=== PATIENT | female | born 1970 | race Caucasian/White ===

== ENCOUNTER 2019-06-22 14:32 | Emergency (ER) | payer MEDICARE ==
--- NOTE | 2019-06-22 14:49 | ER Document Report ---
ED Medical Screen (RME) - General Chief Complaint: Psych Problem Stated Complaint: PSYCH Time Seen by Provider: 06/22/19 14:44 Mode of Arrival: Ambulatory Information source: Patient Notes: Patient is a 49-year-old female presents the emergency department chief complaint of suicidal ideations. Patient reports history of bipolar and schizophrenia, states she is not taking any medications. Patient has a flight of ideas. She has pleasant and cooperative and answering all questions however she easily gets off track. She reports that she plans to inject herself so that she can . 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 I have greeted and performed a rapid initial assessment of this patient. A comprehensive ED assessment and evaluation of the patient, analysis of test results and completion of the medical decision making process will be conducted by additional ED providers. I have specifically instructed the patient or family members with the patient to immediately return to any nursing staff should anything change in the patient's condition or with their chief complaint. This medical record was dictated with voice recognizing software. There may be grammatical, syntax errors that are unintended. TRAVEL OUTSIDE OF THE [place] IN LAST 30 DAYS: No - Related Data Allergies/Adverse Reactions: promethazine [From Phenergan] Allergy (Verified 06/22/19 14:37) Past Medical History Renal/ Medical History: Denies: Hx Peritoneal Dialysis Physical Exam - Vital signs Vitals: Temp Pulse Resp BP Pulse Ox 98.7 F 103 H 16 129/80 H 98 06/22/19 14:37 06/22/19 14:37 06/22/19 14:37 06/22/19 14:37 06/22/19 14:37 Course - Vital Signs Vital signs: Temp Pulse Resp BP Pulse Ox 98.7 F 103 H 16 129/80 H 98 06/22/19 14:37 06/22/19 14:37 06/22/19 14:37 06/22/19 14:37 06/22/19 14:37
[2019-06-22 15:33] LABS: ABSOLUTE BASOPHILS # (AUTO) 0.1 10^3/uL (0.0-0.2); ABSOLUTE EOSINOPHILS # (AUTO) 0.1 10^3/uL (0.0-0.6); ABSOLUTE LYMPHOCYTES (AUTO) 1.5 10^3/uL (0.5-4.7); ABSOLUTE MONOCYTES (AUTO) 0.4 10^3/uL (0.1-1.4); BASOPHILS % (AUTO) 0.7 % (0-2); EOSINOPHILS % (AUTO) 0.8 % (0-6); HEMATOCRIT 41.3 % (36.0-47.0); LYMPHOCYTES % (AUTO) 18.4 % (13-45); MEAN CORPUSCULAR HEMOGLOBIN 30.4 pg (27.0-33.4); MEAN CORPUSCULAR HGB CONC 33.9 g/dL (32.0-36.0); MEAN CORPUSCULAR VOLUME 90 fl (80-97); MONOCYTES % (AUTO) 4.6 % (3-13); PLATELET COUNT 277 10^3/uL (150-450); RED BLOOD COUNT 4.61 10^6/uL (3.72-5.28); RED CELL DISTRIBUTION WIDTH 12.9 % (11.5-14.0); SEGMENTED NEUTROPHILS % (AUTO) 75.5 % (42-78); TOTAL CELLS COUNTED % (AUTO) 100 %; WHITE BLOOD COUNT 7.9 10^3/uL (4.0-10.5)
[2019-06-22 15:47] LABS: ACETAMINOPHEN < 10 ug/mL (10-30); ALBUMIN 4.7 g/dL (3.5-5.0); ALCOHOL < 10 mg/dL (NONE DETECTED); ALKALINE PHOSPHATASE 61 U/L (38-126); ANION GAP 9 (5-19); APPEARANCE,URINE CLEAR; ASPARTATE AMINO TRANSFERASE 27 U/L (14-36); BILIRUBIN,DIRECT 0.1 mg/dL (0.0-0.4); BILIRUBIN,TOTAL 0.8 mg/dL (0.2-1.3); BILIRUBIN,URINE NEGATIVE (NEGATIVE); BLOOD UREA NITROGEN 17 mg/dL (7-20); CALCIUM 10.1 mg/dL (8.4-10.2); CARBON DIOXIDE 29 mmol/L (22-30); CHLORIDE 104 mmol/L (98-107); COLOR,URINE YELLOW; GLUCOSE 104 mg/dL (75-110); GLUCOSE, URINE NEGATIVE (NEGATIVE); KETONES,URINE TRACE mg/dL (NEGATIVE); LEUKOCYTE ESTERASE,URINE NEGATIVE (NEGATIVE); NITRITE,URINE NEGATIVE (NEGATIVE); POTASSIUM 3.8 mmol/L (3.6-5.0); PROTEIN,URINE NEGATIVE (NEGATIVE); SALICYLATE < 1.0 mg/dL (2.0-20.0); URINE SPECIFIC GRAVITY 1.026; UROBILINOGEN,URINE NEGATIVE mg/dL (<2.0)
--- NOTE | 2019-06-22 15:52 | ER Document Report ---
ED Psych Disorder / Suicide - General Chief Complaint: Psych Problem Stated Complaint: PSYCH Time Seen by Provider: 06/22/19 14:44 Mode of Arrival: Ambulatory Information source: Patient Notes: 49 year old female presents with 2 months of increasing depression and wants to hurt herself. She presents here after relocating from [facility]. Sits in her room and smokes all day is what she tells me. She has h/o suicide attempt in the past and Mental Health is involved here with her and she has been placed on IVC papers already. TRAVEL OUTSIDE OF THE [place] IN LAST 30 DAYS: No - HPI Onset was: Gradual Severity: Moderate - Related Data Allergies/Adverse Reactions: promethazine [From Phenergan] Allergy (Verified 06/22/19 14:37) Past Medical History - General Information source: Patient - Social History Smoking Status: Current Every Day Smoker Frequency of alcohol use: None Drug Abuse: Methamphetamine Family History: Reviewed & Not Pertinent Patient has suicidal ideation: Yes Patient has homicidal ideation: No Renal/ Medical History: Denies: Hx Peritoneal Dialysis Psychiatric Medical History: Reports: Hx Bipolar Disorder Review of Systems - Review of Systems Constitutional: No symptoms reported EENT: No symptoms reported Cardiovascular: No symptoms reported Respiratory: No symptoms reported Gastrointestinal: No symptoms reported Genitourinary: No symptoms reported Female Genitourinary: No symptoms reported Musculoskeletal: No symptoms reported Skin: No symptoms reported Hematologic/Lymphatic: No symptoms reported Neurological/Psychological: See HPI, Depression Physical Exam - Vital signs Vitals: Temp Pulse Resp BP Pulse Ox 98.7 F 103 H 16 129/80 H 98 06/22/19 14:37 06/22/19 14:37 06/22/19 14:37 06/22/19 14:37 06/22/19 14:37 Interpretation: Normal - General General appearance: Appears well, Alert - HEENT Head: Normocephalic, Atraumatic Eyes: Normal Pupils: PERRL - Respiratory Respiratory status: No respiratory distress Chest status: Nontender Breath sounds: Normal Chest palpation: Normal - Cardiovascular Rhythm: Regular Heart sounds: Normal auscultation Murmur: No - Abdominal Inspection: Normal Distension: No distension Bowel sounds: Normal Tenderness: Nontender Organomegaly: No organomegaly - Back Back: Normal, Nontender - Extremities General upper extremity: Normal inspection, Nontender, Normal color, Normal ROM, Normal temperature General lower extremity: Normal inspection, Nontender, Normal color, Normal ROM, Normal temperature, Normal weight bearing. No: Jm's sign - Neurological Neuro grossly intact: Yes Cognition: Normal Orientation: AAOx4 Stella Coma Scale Eye Opening: Spontaneous Davin Coma Scale Verbal: Oriented Stella Coma Scale Motor: Obeys Commands Stella Coma Scale Total: 15 Speech: Normal Motor strength normal: LUE, RUE, LLE, RLE Sensory: Normal - Psychological Associated symptoms: Normal affect, Normal mood - Skin Skin Temperature: Warm Skin Moisture: Dry Skin Color: Normal Course - Re-evaluation Re-evalutation: 06/22/19 15:52 MDM 49 year old with h/o depression is here with depressive symptoms for several weeks. No great social support. 06/22/19 16:52 MDM Pt has been seen and evaluated by Psych. Feel zyprexa may help with her manic symptoms. She has been placed on IVC papers. Reevaluate tomorrow for mood affect. - Vital Signs Vital signs: Temp Pulse Resp BP Pulse Ox 98.7 F 103 H 16 129/80 H 98 06/22/19 14:37 06/22/19 14:37 06/22/19 14:37 06/22/19 14:37 06/22/19 14:37 - Laboratory Result Diagrams: 06/22/19 15:00 06/22/19 15:00 Laboratory results interpreted by me: 06/22/19 06/22/19 15:00 15:00 Urine Ketones TRACE H Salicylates < 1.0 L Acetaminophen < 10 L Discharge - Discharge Clinical Impression: Bipolar 1 disorder Depressed Qualifiers: Depression Type: unspecified Qualified Code(s): F32.9 - Major depressive disorder, single episode, unspecified Condition: Good Disposition: HOME, SELF-CARE Instructions: Depression (OM) Additional Instructions: See your doctor in follow up. Rest, please return here for any problems or concerns.
[2019-06-22 16:04] LABS: URINE AMPHETAMINES SCREEN NEGATIVE; URINE BARBITURATES SCREEN NEGATIVE; URINE BENZODIAZEPINES SCREEN NEGATIVE; URINE COCAINE SCREEN NEGATIVE; URINE MARIJUANA (THC) SCREEN NEGATIVE; URINE METHADONE SCREEN NEGATIVE; URINE PHENCYCLIDINE SCREEN NEGATIVE
--- NOTE | 2019-06-22 16:41 | PSYCHOLOGICAL NOTE ---
Psych Note - Psych Note Date seen by psych provider: 06/22/19 Time seen by psych provider: 15:20 Psych Note: Reason for Consult: Manic, Suicidal ideation Consent permissions: Friend and roommate Chi [phone] Patient is a 49-year-old female presents the emergency department chief complaint of suicidal ideations. Patient reports history of bipolar and schizophrenia, states she is not taking any medications. Patient reports that she has been off medications for significant time and has a history of methamphetamine abuse. She denies current use stating that she has been clean and living with a friend. Patient disclosed that she used to be on medication for bipolar and that abilify and zyprexa has worked in the patient. She states Depakote was bad, and did not work for her. Patient's friend, Chi, reports that today they told the patient that she had to come in because she has been having increased difficulties over the last 2 months. He reports that while she has been clean from methamphetamine, she has increased her drinking and smoking of marijuana. He reports that she is unable to handle her alcohol becomes very belligerent and aggressive. He discloses that they have taken her off the street and helped her get clean however told her today that if she did not get help she would have to move out and go back on the street. Bipolar disorder per history Substance Abuse; alcohol and Cannabis (Current) and methamphetamine (states clean now) per history provided by patient Medication recommendations per [facility]'s contracted psychiatrist Dr. Gilbert NASH are as follows Zyprexa 2.5mg twice daily Impression/Plan: Patient is recommended for [facility] petition for overnight mental health observation. Patient is presenting with incongruent affect to topics. She reports she has been having difficulty controlling suicidal ideation for the last 2 months however is smiling and laughing while she discusses this.
[2019-06-22] MEDS ORDERED: OLANZAPINE 2.5 MG TABLET PO ONE (16:51)
[2019-06-22] MEDS: OLANZAPINE 2.5 MG TABLET PO SCH (17:13)
--- NOTE | 2019-06-22 20:56 | EKG REPORT ---
SEVERITY:- NORMAL ECG - SINUS RHYTHM : Confirmed by: Geraldine Groves MD 22-Jun-2019 20:55:07
[2019-06-23 08:39] VITALS: BP 113/61
[2019-06-23] MEDS: OLANZAPINE 2.5 MG TABLET PO SCH (10:04)
--- NOTE | 2019-06-23 10:56 | ER Document Report ---
Doctor's Note Notes: 06/23/19 10:55 Rounds: Chart reviewed and patient interviewed. Patient with a history of bipolar disorder and also mention of schizophrenia. She says she is having suicidal thoughts. Not currently on any medications, ran out of her previously prescribed meds. Current labs are all normal. Vital signs are normal. Patient appears to be medically stable for transfer or discharge. Patience Hill MD
--- NOTE | 2019-06-23 13:30 | PSYCHOLOGICAL NOTE ---
Psych Note - Psych Note Date seen by psych provider: 06/23/19 Time seen by psych provider: 09:45 Psych Note: Reason for Consult: Manic, Suicidal ideation Consent permissions: Friend and roommate Chi [phone] Patient is a 49-year-old female presents the emergency department chief complaint of suicidal ideations. Check-in conducted with patient Patient is observed holding her head. She reports she is not doing well. Patient is notably having difficulty with conversational speech. Significant pauses in between words and appears slightly confused. Staff note patient was heard talking to herself in her room. Bipolar disorder per history Substance Abuse; alcohol and Cannabis (Current) and methamphetamine (states clean now) per history provided by patient Medication recommendations per [facility]'s contracted psychiatrist Dr. Gilbert NASH are as follows Zyprexa 2.5mg twice daily Impression/Plan: Patient is recommended for IVC. Patient has decompensated over the evening. While patient presented manic originally patient now appears to be responding to internal stimuli. Patient has been accepted to [facility]; transportation has been requested. Dr. Centeno was consulted to care management of this patient; attending physicians in agreement with recommendations and disposition.
== END 2019-06-23 14:50 | disposition home or self-care (01) ==
LOC: ER 14:32
DX: F31.9 Bipolar disorder, unspecified (principal); R45.851 Suicidal ideations; F15.10 Other stimulant abuse, uncomplicated; F17.200 Nicotine dependence, unspecified, uncomplicated; Z88.8 Allergy status to other drugs, medicaments and biological substances
CPT/HCPCS: 93005; 99285; 36415; 80307 ×4; 85025; 80053; 81001; 93010; A9270 ×2; J3490

== ENCOUNTER → 2019-09-23 | Outpatient (CLI) | payer MEDICARE ==
--- NOTE | 2019-09-24 14:05 | WOMENS IMAGING REPORT ---
EXAM DESCRIPTION: 3D SCREENING MAMMO BILAT COMPLETED DATE/TIME: 09/23/2019 11:30 am REASON FOR STUDY: C50.912 SCREENING MAMMO Z12.31 ENCNTR SCREEN MAMMOGRAM FOR MALIGNANT NEOPLASM OF [place] COMPARISON: None. EXAM PARAMETERS: Standard craniocaudal and mediolateral oblique views of each breast recorded using digital acquisition and breast tomosynthesis. Read with the assistance of CAD. .[facility] - [facility] Aide Version 9.2 LIMITATIONS: None. FINDINGS: RIGHT BREAST MASSES: No suspicious masses. CALCIFICATIONS: No new or suspicious calcifications. ARCHITECTURAL DISTORTION: None. ASYMMETRY: None noted. OTHER: No other significant findings. LEFT BREAST MASSES: No suspicious masses. CALCIFICATIONS: No new or suspicious calcifications. ARCHITECTURAL DISTORTION: There is an area of architecture distortion in the superior medial breast 4 cm from the nipple. This may be the site of prior surgery. Prior mammography could not be obtained . ASYMMETRY: None noted. OTHER: No other significant findings. IMPRESSION: Architecture distortion left breast 0 Incomplete: Needs Additional Imaging Evaluation and/or prior Mammograms for Comparison. BREAST DENSITY: b. There are scattered areas of fibroglandular density. BIRAD: ASSESSMENT: 0 Incomplete: Needs Additional Imaging Evaluation and/or prior Mammograms for C omparison. RECOMMENDATION: RECOMMENDED FOLLOW-UP: Ultrasound. The patient will be contacted for additional imaging. COMMENT: The patient has been notified of the results by letter per MQSA requirements. Additional no tification policies are in place for contacting patient with suspicious or incomplete findings. Quality ID #[id number]: The [employer] recommends an annual screening mammogram for women aged 40 years or over. This facility utilizes a reminder system to ensure that all patients receive reminder letters, and/or direct phone calls for appointments. This includes reminders for routine scr eening mammograms, diagnostic mammograms, or other Breast Imaging Interventions when appropriate. Th is patient will be placed in the appropriate reminder system. TECHNICAL DOCUMENTATION: FINDING NUMBER: (1) ASSESSMENT: (1) JOB ID: [id number] [employer]- All Rights Reserved Reading location - IP/workstation name: [email or web address]
== END ==
LOC: WI 10:45
PROVIDERS: ATTEND Internal Medicine
DX: Z12.31 Encounter for screening mammogram for malignant neoplasm of breast (principal); C50.912 Malignant neoplasm of unspecified site of left female breast
CPT/HCPCS: 77063; 77067

== ENCOUNTER → 2019-10-29 | Outpatient (CLI) | payer MEDICARE ==
--- NOTE | 2019-10-30 11:57 | WOMENS IMAGING REPORT ---
EXAM DESCRIPTION: U/S BREAST UNILAT LIMITED COMPLETED DATE/TIME: 10/29/2019 9:06 am REASON FOR STUDY: R92.2 INCONCLUSIVE MAMMOGRAM R92.2 INCONCLUSIVE MAMMOGRAM COMPARISON: BILATERAL MAMMOGRAPHY/ TOMOSYNTHESIS 09/23/2019 TECHNIQUE: Real-time and static grayscale imaging performed of the left breast targeted to the area of mammographic concern. Selected color Doppler images recorded. LIMITATIONS: None. FINDINGS: MASS: No mass identified. Normal glandular tissue. OTHER: In the medial left breast upper inner quadrant, patient has a skin incision prep prior lumpect levar. Just deep to this skin incision, a band of scar tissue is present which correlates with the arc hitectural distortion seen on mammography/ tomosynthesis 09/23/2019. This is a benign finding. IMPRESSION: Benign findings, old lumpectomy site medial left breast BIRAD: 2 Benign findings. RECOMMENDATION: RECOMMENDED FOLLOW-UP: Please continue yearly bilateral screening mammography/tomosy nthesis in September 2020 COMMENT: The [employer] (ACR) has developed recommendations for screening MRI of the breasts in certain patient populations, to be used in conjunction with mammography. Breast MRI s urveillance may be appropriate for women with more than 20% lifetime risk of developing breast cancer as determined by genetic testing, significant family history of the disease, or history of mantle r adiation for Hodgkins Disease. ACR Practice Guidelines 2008. TECHNICAL DOCUMENTATION: JOB ID: [id number] [employer]- All Rights Reserved Reading location - IP/workstation name: [email or web address]
== END ==
LOC: WI 08:15
PROVIDERS: ATTEND Internal Medicine
DX: R92.2 Inconclusive mammogram (principal)
CPT/HCPCS: 76642

== ENCOUNTER 2019-11-29 09:34 | Emergency (ER) | payer MEDICARE, OTHER ==
--- NOTE | 2019-11-29 09:51 | ER Document Report ---
HPI - HPI Time Seen by Provider: 11/29/19 09:44 Pain Level: 4 Context: Patient is a 49-year-old female presents emergency department with a chief complaint of urinary frequency. Patient reports 3 days ago developing some lower back pain. Patient reports over the weekend she is had some urinary frequency. Patient reports chills without nausea, vomiting or diarrhea. Patient reports she feels like she is also going through menopause she has not had a period in 3 months. Patient reports now having some bladder discomfort and suprapubic pain. Patient denies vaginal bleeding or discharge. Patient denies flank pain. - REPRODUCTIVE LMP: August 2019 Reproductive: DENIES: : Past Medical History - General Information source: Patient - Social History Smoking Status: Former Smoker Chew tobacco use (# tins/day): No Frequency of alcohol use: Social Drug Abuse: Marijuana Lives with: Family Family History: Reviewed & Not Pertinent Patient has suicidal ideation: No Patient has homicidal ideation: No - Past Medical History Cardiac Medical History: Reports: None Pulmonary Medical History: Reports: None EENT Medical History: Reports: None Neurological Medical History: Reports: None Endocrine Medical History: Reports: None Renal/ Medical History: Reports: None. Denies: Hx Peritoneal Dialysis Malignancy Medical History: Reports: None GI Medical History: Reports: None Musculoskeletal Medical History: Reports None Skin Medical History: Reports None Psychiatric Medical History: Reports: Hx Bipolar Disorder Traumatic Medical History: Reports: None Infectious Medical History: Reports: None Past Surgical History: Reports: None Vertical Provider Document - CONSTITUTIONAL Agree With Documented VS: Yes Exam Limitations: No Limitations General Appearance: No Apparent Distress Notes: GENERAL: Well-appearing, well-nourished and in no acute distress. HEAD: Atraumatic, normocephalic. EYES: Pupils equal round and reactive to light, extraocular movements intact, sclera anicteric, conjunctiva are normal. ENT: Nares patent, oropharynx clear without exudates. Moist mucous membranes. NECK: Normal range of motion, supple without lymphadenopathy or JVD. LUNGS: Breath sounds clear to auscultation bilaterally and equal. No wheezes rales or rhonchi. HEART: Regular rate and rhythm without murmurs, rubs or gallops. ABDOMEN: Soft, mild suprapubic pain with palpation, normoactive bowel sounds. No guarding, no rebound. No masses appreciated. BACK: No cervical, thoracic, lumbar midline tenderness. No saddle anesthesia, normal distal neurovascular exam. No CVA tenderness. GENITOURINARY: Deferred. EXTREMITIES: Normal range of motion, no pitting or edema. No clubbing or cyanosis. NEUROLOGICAL: Cranial nerves II through XII grossly intact. Normal speech, normal gait. PSYCH: Normal mood, normal affect. SKIN: Warm, Dry, normal turgor, no rashes or lesions noted. - INFECTION CONTROL TRAVEL OUTSIDE OF THE [place] IN LAST 30 DAYS: No Course - Re-evaluation Re-evalutation: 11/29/19 09:51 We will obtain a urinalysis and a urine hCG. Patient nontoxic-appearing without hypotension, fever, tachycardia. 11/29/19 10:50 Patient's urine hCG was negative. Patient does have a urinary tract infection. A urine culture was added. Patient reports that she does not tolerate Macrobid well. We will place her on Keflex as well as Pyridium. Patient given strict return precautions. Patient encouraged to increase fluid intake. - Laboratory Laboratory results interpreted by me: 11/29/19 10:29 Laboratory 11/29/19 09:55 Urine Color YELLOW Urine Appearance CLOUDY Urine pH 6.0 Ur Specific [place] 1.018 Urine Protein NEGATIVE Urine Glucose (UA) NEGATIVE Urine Ketones NEGATIVE Urine Blood NEGATIVE Urine Nitrite NEGATIVE Urine Bilirubin NEGATIVE Urine Urobilinogen 2.0 H Ur Leukocyte Esterase LARGE H Urine WBC (Auto) 67 Urine RBC (Auto) 8 Urine Bacteria (Auto) TRACE Squamous Epi Cells Auto 12 Urine Mucus (Auto) RARE Urine Ascorbic Acid NEGATIVE Urine HCG, Qual NEGATIVE Discharge - Discharge Clinical Impression: Dysuria UTI (urinary tract infection) Qualifiers: Urinary tract infection type: acute cystitis Hematuria presence: without hematuria Qualified Code(s): N30.00 - Acute cystitis without hematuria Condition: Stable Disposition: HOME, SELF-CARE Instructions: Cephalexin ([facility]), Urinary Anesthetic Agent ([facility]) Additional Instructions: *Today was seen in the emergency department for urinary frequency. It does show that you have a urinary tract infection. This is due to germs growing in the bladder. We have sent off a urine culture. I will place you on Keflex which is an oral antibiotic. Please take the Pyridium as needed for bladder spasms and bladder discomfort. This can change your urine to a dark orange color. Please make sure you are pushing plenty of fluids to stay hydrated. Finish the antibiotic for its full course. Please return the emergency department if you develop fever, chills, flank pain inability to urinate or blood in the urine. Urinary Tract Infection Your evaluation indicates that you have a urinary tract infection. This is due to germs growing in the bladder. This is a common problem. This infection usually responds quickly to antibiotics. Your antibiotic should be taken exactly as prescribed. Drink plenty of fluids -- three to four quarts a day. Occasionally, a bladder anesthetic will be prescribed to help stop the feeling of urgency until the antibiotic has a chance to clear the infection. This may cause your urine to be dark orange. Certain urine infections require a culture. If the doctor obtained a culture, the results will be back in two days. You should call to see if a change in treatment is needed. A repeat urinalysis after you finish treatment is often recommended. The physician will let you know if further testing is required. Call the doctor if you develop fever, chills, flank pain, inability to urinate, or blood in the urine. Prescriptions: Cephalexin Monohydrate [Keflex 500 mg Capsule] 500 mg PO BID 7 Days #14 capsule Ibuprofen [Motrin 800 mg Tablet] 800 mg PO Q8H PRN #30 tab PRN Reason: Phenazopyridine HCl [Pyridium] 100 mg PO TID PRN 2 Days #6 tablet PRN Reason: Forms: Return to Work Referrals: LEIGH ANN LARA MD [Primary Care Provider] - Follow up as needed
[2019-11-29 09:55] VITALS: BP 124/57
[2019-11-29 10:12] LABS: APPEARANCE,URINE CLOUDY; BILIRUBIN,URINE NEGATIVE (NEGATIVE); COLOR,URINE YELLOW; GLUCOSE, URINE NEGATIVE (NEGATIVE); KETONES,URINE NEGATIVE (NEGATIVE); LEUKOCYTE ESTERASE,URINE LARGE (NEGATIVE); NITRITE,URINE NEGATIVE (NEGATIVE); PROTEIN,URINE NEGATIVE (NEGATIVE); URINE SPECIFIC GRAVITY 1.018
[2019-11-29] MEDS ORDERED: CEPHALEXIN 500 MG CAPSULE PO ONE (10:33)
[2019-11-29] MEDS ORDERED: PHENAZOPYRIDINE HCL 100 MG TABLET PO ONE (10:33)
== END 2019-11-29 10:41 | disposition home or self-care (01) ==
LOC: ER 09:34
DX: N30.00 Acute cystitis without hematuria (principal); R35.0 Frequency of micturition; M54.5 Low back pain; R68.83 Chills (without fever); R10.30 Lower abdominal pain, unspecified; Z87.891 Personal history of nicotine dependence
CPT/HCPCS: 99283; 87086; 81025; 87088; 81001; J3490